=== PATIENT | male | born 1990 | race Two or more races ===

== ENCOUNTER → 2024-02-28 | Emergency (ER) | payer OTHER ==
[~2024-02-28] VITALS: Ht 152.4 cm; Wt 68.0 kg
[~2024-02-28] MED LIST: ATORVASTATIN CA20 MG; HYOSCYAMINE0.125 M1 SL; LEVOFLOXACIN500 MG PO; METRONIDAZOLE/SODIUM CHLORIDE 500 MG/100 ML PIGGYBACK IV STA; PEPCID20 MG PO; PERCOCET 5-3251 EACH PO; RINGERS SOLUTION,LACTATED 1,000 ML IV STA
[2024-02-28 06:17] LABS: HEMOGLOBIN 15.7 g/dL (13-16.00); MEAN CELL VOLUME 87.6 fL (80.0-100.00); MEAN CORPUSCULAR HEMOGLOBIN 30.6 pg (27.00-32.0); PLATELET COUNT 201 K/uL (150-450); RED BLOOD COUNT 5.13 M/uL (4.00-6.00)
[2024-02-28 06:20] LABS: INR 0.98; PARTIAL THROMBOPLASTIN TIME 28.8 SECONDS (22.0-34.0); PROTHROMBIN TIME 10.3 SECONDS (9.0-11.5)
[2024-02-28 06:24] LABS: ALBUMIN 4.4 gm/dL (3.4-5.0); BILIRUBIN TOTAL 1.41 mg/dL (0.3-1.2); CALCIUM 9.6 mg/dL (8.5-10.1); CREATININE SERUM 0.98 mg/dL (0.70-1.30); GFR 87.04; GLOBULINA 3.5 G/DL (2.4-3.5); POTASSIUM 5.17 mEq/L (3.5-5.1); TOTAL PROTEIN 7.9 gm/dL (6.4-8.2)
[2024-02-28 09:25] LABS: URINE APPEARANCE Clear; URINE BILIRRUBIN Negative (NEGATIVE); URINE BLOOD Negative; URINE COLOR Yellow; URINE GLUCOSE Negative (NEGATIVE); URINE LEUKOCYTE Negative; URINE NITRATE Negative; URINE PROTEIN Negative (NEGATIVE); URINE UROBILINOGEN 0.2 E.U./dl
[2024-02-28 09:27] LABS: URINE RBC 3.5 uL (0.0-20.8)
[2024-02-28 10:01] LABS: URINE WBC 0.9 uL (0.0-23.2)
[2024-02-28 10:02] LABS: URINE BACTERIA 1.2 uL (0.0-1933); URINE EPITHELIAL CELLS 0.9 uL (0.0-38.8)
== END | disposition home or self-care (01) ==
LOC: ER 02:14
DX: K63.89 Other specified diseases of intestine (principal)